=== PATIENT | male | born 1980 | race Asian ===

== ENCOUNTER 2023-11-18 18:14 | Inpatient (IN) | payer BC ==
[~2023-11-18] VITALS: Ht 167.6 cm; Wt 75.7 kg
[2023-11-18 18:53] LABS: BASOPHILS # (AUTO) 0.1 (0.0-0.1); BASOPHILS % 0.3 % (0.0-1.0); EOSINOPHILS # (AUTO) 0.1 (0.0-0.4); EOSINOPHILS % 0.5 % (0.0-6.0); HEMATOCRIT 43.6 % (38.2-49.6); HEMOGLOBIN 14.6 g/dL (14.0-18.0); LYMPHOCYTES # (AUTO) 1.6 (1.0-3.2); LYMPHOCYTES % 8.2 % (18.0-39.1); MEAN CORPUSCULAR HEMOGLOBIN 30.7 pg (28-32); MEAN CORPUSCULAR HGB CONC 33.5 g/dL (31-35); MEAN CORPUSCULAR VOLUME 91.8 fL (81-99); MONOCYTES # (AUTO) 2.6 (0.2-0.8); MONOCYTES % 12.9 % (4.4-11.3); NEUTROPHILS # (AUTO) 15.4 (2.1-6.9); NEUTROPHILS % 77.3 % (38.7-80.0); PLATELET COUNT 265 x10e3/uL (140-360); RED BLOOD COUNT 4.75 x10e6/uL (4.3-5.7); WHITE BLOOD COUNT 19.83 x10e3/uL (4.8-10.8)
[2023-11-18] MEDS: SODIUM CHLORIDE 0.9% 1000ML 1,000 ML IV STA (18:59)
[2023-11-18] MEDS: ONDANSETRON HCL INJ 2MG/ML 2ML 2 MG/ML VIAL IV STA (18:59)
[2023-11-18] MEDS: Morphine 4mg INJECTION 4 MG/ML INJ IV STA (19:00)
[2023-11-18] MEDS: ACETAMINOPHEN 325 MG TAB PO STA (19:00)
[2023-11-18 19:11] LABS: ALBUMIN 4.2 g/dL (3.5-5.0); ANION GAP 15.2 mmol/L (8-16); BILIRUBIN,TOTAL 0.6 mg/dL (0.2-1.2); CALCIUM 8.7 mg/dL (8.4-10.2); CREATININE, SERUM 1.19 mg/dL (0.72-1.25); POTASSIUM 4.2 mmol/L (3.5-5.1); TOTAL PROTEIN 8.3 g/dL (6.5-8.1)
[2023-11-18] MEDS ORDERED: IOPAMIDOL 370 MG/ML 100 ML INFUS..BTL INJ ONE (19:32)
[2023-11-18] MEDS ORDERED: Morphine 4mg INJECTION 4 MG/ML INJ IV PRN ×2 (20:30→23:00)
[2023-11-18 21:04] VITALS: PULSE 64; RESP 16; TEMP 98.8
[2023-11-18] MEDS: METRONIDAZOLE 500MG/NS 100ML 100 ML IV SCH (21:52)
[2023-11-18 22:20] VITALS: BP 111/66; PULSE 58; RESP 16; TEMP 98.7; O2SAT 99
[2023-11-18] MEDS ORDERED: ONDANSETRON HCL INJ 2MG/ML 2ML 2 MG/ML VIAL IV PRN (23:00)
[2023-11-18 23:03] VITALS: BP 111/66; PULSE 58; RESP 16; TEMP 98.7; O2SAT 99
[2023-11-18] MEDS: SODIUM CHLORIDE 0.9% 100 ML ONE (23:25)
[2023-11-18 23:29] VITALS: BP 111/66; PULSE 58; RESP 16; TEMP 98.7; O2SAT 99
[2023-11-19] VITALS (7 sets, daily range): BP systolic 95–107; BP diastolic 62–78; PULSE 56–79; RESP 16–18; TEMP 97.7–99.9; O2SAT 97–99
[2023-11-19 05:38] LABS: BASOPHILS # (AUTO) 0.1 (0.0-0.1); BASOPHILS % 0.3 % (0.0-1.0); EOSINOPHILS # (AUTO) 0.1 (0.0-0.4); EOSINOPHILS % 0.7 % (0.0-6.0); HEMATOCRIT 40.5 % (38.2-49.6); HEMOGLOBIN 13.2 g/dL (14.0-18.0); LYMPHOCYTES # (AUTO) 1.5 (1.0-3.2); LYMPHOCYTES % 8.3 % (18.0-39.1); MEAN CORPUSCULAR HEMOGLOBIN 30.4 pg (28-32); MEAN CORPUSCULAR HGB CONC 32.6 g/dL (31-35); MEAN CORPUSCULAR VOLUME 93.3 fL (81-99); MONOCYTES # (AUTO) 2.3 (0.2-0.8); MONOCYTES % 13.2 % (4.4-11.3); NEUTROPHILS # (AUTO) 13.5 (2.1-6.9); NEUTROPHILS % 76.8 % (38.7-80.0); PLATELET COUNT 238 x10e3/uL (140-360); RED BLOOD COUNT 4.34 x10e6/uL (4.3-5.7); RED CELL DISTRIBUTION WIDTH 12.9 % (11.7-14.4); WHITE BLOOD COUNT 17.62 x10e3/uL (4.8-10.8)
[2023-11-19 06:04] LABS: ALBUMIN 3.5 g/dL (3.5-5.0); ANION GAP 13.1 mmol/L (8-16); BILIRUBIN,TOTAL 0.4 mg/dL (0.2-1.2); CALCIUM 8.5 mg/dL (8.4-10.2); CREATININE, SERUM 1.12 mg/dL (0.72-1.25); POTASSIUM 4.1 mmol/L (3.5-5.1); TOTAL PROTEIN 7.1 g/dL (6.5-8.1)
[2023-11-19] MEDS ORDERED: ACETAMINOPHEN 325 MG TAB PO PRN (08:45)
[2023-11-19] MEDS ORDERED: ALBUTEROL/IPRATROPIUM 3 ML NEB NEB PRN (08:45)
[2023-11-19] MEDS ORDERED: SIMETHICONE 80 MG CHEW PO PRN (08:45)
[2023-11-19] MEDS ORDERED: MELATONIN 3 MG TAB PO PRN (08:45)
[2023-11-19] MEDS ORDERED: DOCUSATE SODIUM 100 MG CAP PO PRN (08:45)
[2023-11-19] MEDS: SODIUM CHLORIDE 0.9% 1000ML 1,000 ML IV SCH (09:39)
[2023-11-19] MEDS ORDERED: MIDAZOLAM HCL 2 MG/2 ML VIAL ONE (13:22)
[2023-11-19] MEDS ORDERED: FENTANYL CITRATE/PF 100MCG/2 ML INJ ONE (13:22)
[2023-11-19] MEDS ORDERED: LIDOCAINE HCL 1% LOCAL INJ 20 ML VIAL ONE (14:07)
[2023-11-19] MEDS ORDERED: BUPIVACAINE 0.5%/EPI 30 ML SDV INJ ONE (14:07)
[2023-11-19] MEDS ORDERED: HYDROMORPHONE 1MG/1ML INJ IV PRN (15:15)
[2023-11-19] MEDS ORDERED: ONDANSETRON HCL INJ 2MG/ML 2ML 2 MG/ML VIAL IV PRN (15:15)
[2023-11-19] MEDS ORDERED: SEVOFLURANE INHAL SOLN 250 ML PEN BTL ONE (17:17)
[2023-11-19] MEDS ORDERED: ONDANSETRON HCL INJ 2MG/ML 2ML 2 MG/ML VIAL ONE (17:17)
[2023-11-19] MEDS ORDERED: ESMOLOL HCL 100MG/10ML 10 MG/ML VIAL ONE (17:17)
[2023-11-19] MEDS ORDERED: DEXAMETHASONE SOD PHOS INJ 4 MG/ML SDV ONE (17:17)
[2023-11-19] MEDS ORDERED: PROPOFOL IV EMULSION 10 MG/ML 20 ML VIAL ONE (17:17)
[2023-11-19] MEDS ORDERED: LIDOCAINE HCL 2% LOCAL INJ 5 ML SDV VIAL INJ ONE (17:17)
[2023-11-19] MEDS: FAMOTIDINE 20 MG TAB PO SCH (17:32)
[2023-11-19] MEDS: KETOROLAC TROMETHAMINE 30 MG/ML VIAL IV PRN (17:39)
[2023-11-20] VITALS (12 sets, daily range): BP systolic 91–104; BP diastolic 52–78; PULSE 50–82; RESP 18–20; TEMP 97–98.2; O2SAT 98–100
[2023-11-20 05:35] LABS: BASOPHILS % 0.2 % (0.0-1.0); EOSINOPHILS % 0.2 % (0.0-6.0); HEMATOCRIT 38.5 % (38.2-49.6); HEMOGLOBIN 12.6 g/dL (14.0-18.0); LYMPHOCYTES # (AUTO) 1.5 (1.0-3.2); LYMPHOCYTES % 11.2 % (18.0-39.1); MEAN CORPUSCULAR HEMOGLOBIN 30.6 pg (28-32); MEAN CORPUSCULAR HGB CONC 32.7 g/dL (31-35); MEAN CORPUSCULAR VOLUME 93.4 fL (81-99); MONOCYTES # (AUTO) 1.3 (0.2-0.8); MONOCYTES % 9.3 % (4.4-11.3); NEUTROPHILS # (AUTO) 10.6 (2.1-6.9); NEUTROPHILS % 78.2 % (38.7-80.0); PLATELET COUNT 248 x10e3/uL (140-360); RED BLOOD COUNT 4.12 x10e6/uL (4.3-5.7); WHITE BLOOD COUNT 13.52 x10e3/uL (4.8-10.8)
[2023-11-20 06:06] LABS: ANION GAP 8.6 mmol/L (8-16); CALCIUM 8.8 mg/dL (8.4-10.2); CREATININE, SERUM 0.97 mg/dL (0.72-1.25); POTASSIUM 4.6 mmol/L (3.5-5.1)
[2023-11-20] MEDS: HYDROCODONE/APAP 7.5MG-325MG 1 EA TAB PO PRN (08:08)
[2023-11-20] MEDS: SODIUM CHLORIDE 0.9% 1000ML 1,000 ML IV SCH (08:08)
[2023-11-20] MEDS: SODIUM CHLORIDE 0.9% 1000ML 500 ML IV ONE (12:12)
[2023-11-21] VITALS (9 sets, daily range): BP systolic 91–113; BP diastolic 59–81; PULSE 48–65; RESP 7–18; TEMP 97.6–98.3; O2SAT 94–100
[2023-11-21 05:44] LABS: BASOPHILS # (AUTO) 0.1 (0.0-0.1); BASOPHILS % 0.6 % (0.0-1.0); EOSINOPHILS # (AUTO) 0.3 (0.0-0.4); EOSINOPHILS % 2.6 % (0.0-6.0); HEMATOCRIT 37.4 % (38.2-49.6); HEMOGLOBIN 12.4 g/dL (14.0-18.0); LYMPHOCYTES # (AUTO) 1.8 (1.0-3.2); MEAN CORPUSCULAR HGB CONC 33.2 g/dL (31-35); MEAN CORPUSCULAR VOLUME 93.5 fL (81-99); MONOCYTES # (AUTO) 1.2 (0.2-0.8); MONOCYTES % 11.8 % (4.4-11.3); NEUTROPHILS % 67.2 % (38.7-80.0); PLATELET COUNT 260 x10e3/uL (140-360); RED CELL DISTRIBUTION WIDTH 12.9 % (11.7-14.4); WHITE BLOOD COUNT 10.46 x10e3/uL (4.8-10.8)
[2023-11-21 06:45] LABS: ANION GAP 8.9 mmol/L (8-16); CALCIUM 7.8 mg/dL (8.4-10.2); CREATININE, SERUM 0.85 mg/dL (0.72-1.25); POTASSIUM 3.9 mmol/L (3.5-5.1)
[2023-11-21] MEDS ORDERED: IOPAMIDOL 610MG/1ML 300 MG/ML VIAL IV ONE (09:29)
[2023-11-21] MEDS ORDERED: ONDANSETRON HCL 4 MG ORAL DISINTEGRATING TAB PO PRN (10:15)
[2023-11-21] MEDS ORDERED: DEXMEDETOMIDINE HCL 200 MCG/2 ML VIAL ONE (11:06)
[2023-11-21] MEDS ORDERED: LIDOCAINE HCL 2% LOCAL INJ 5 ML SDV VIAL INJ ONE (11:06)
[2023-11-21] MEDS ORDERED: ACETAMINOPHEN 1000 MG/100 ML IV ONE (11:06)
[2023-11-21] MEDS ORDERED: PROPOFOL IV EMULSION 10 MG/ML 20 ML VIAL ONE (11:06)
[2023-11-21] MEDS ORDERED: SODIUM CHLORIDE 0.9% INJ 100 ML BAG ONE (11:06)
[2023-11-21] MEDS ORDERED: FENTANYL CITRATE/PF 100MCG/2 ML INJ ONE (11:29)
[2023-11-21] MEDS ORDERED: MIDAZOLAM HCL 2 MG/2 ML VIAL ONE (11:29)
[2023-11-22] VITALS (8 sets, daily range): BP systolic 96–148; BP diastolic 53–88; PULSE 50–69; RESP 16–19; TEMP 97.8–98.7; O2SAT 96–100
[2023-11-23] VITALS: BP 106/67; PULSE 53; RESP 17; TEMP 98.2; O2SAT 98
[2023-11-23 04:00] VITALS: BP 103/68; PULSE 53; RESP 20; TEMP 98; O2SAT 97
[2023-11-23 07:29] VITALS: PULSE 71; RESP 17; O2SAT 95
[2023-11-23 07:58] VITALS: BP 115/65; PULSE 49; RESP 19; TEMP 98.2; O2SAT 98
[2023-11-23 08:03] VITALS: BP 115/65; PULSE 49; RESP 19; TEMP 98.2; O2SAT 98
[2023-11-23] MEDS: DOCUSATE SODIUM 100 MG CAP PO SCH (08:35)
[2023-11-23] MEDS: SENNOSIDES 8.6 MG TAB PO SCH (08:36)
[2023-11-23 11:55] VITALS: BP 103/65; PULSE 62; RESP 19; TEMP 98.2; O2SAT 98
[2023-11-23] MEDS ORDERED: Docusate Sodium PO (12:02)
[2023-11-23] MEDS ORDERED: ACETAMINOPHEN325 M1 PO (12:02)
[2023-11-23] MEDS ORDERED: ULTRAM 50MG50 MG PO (12:02)
[2023-11-23] MEDS ORDERED: SENOKOT8.6 MG PO (12:02)
[2023-11-23] MEDS ORDERED: FAMOTIDINE20 MG PO (12:02)
[2023-11-23] MEDS ORDERED: METRONIDAZOLE500 MG PO (12:02)
[2023-11-23] MEDS ORDERED: CIPRO500 MG PO (12:02)
[2023-11-23] MEDS ORDERED: METRONIDAZOLE 500 MG TAB PO SCH (18:00)
== END 2023-11-23 15:11 | disposition home or self-care (01) | DRG 854 ==
LOC: ER 18:41 → ERHOLD 20:23 → MED/SURG3 22:13
PROVIDERS: ADMIT Internal Medicine; ATTEND Internal Medicine
PROC: 3E03329 Introduction of Other Anti-infective into Peripheral Vein, Percutaneous Approach (ICD-10-PCS; 2023-11-18)
PROC: 0HB9XZZ Excision of Perineum Skin, External Approach (ICD-10-PCS; principal; 2023-11-19 14:17)
PROC: 0T778DZ Dilation of Left Ureter with Intraluminal Device, Via Natural or Artificial Opening Endoscopic (ICD-10-PCS; 2023-11-21)
PROC: 0TC78ZZ Extirpation of Matter from Left Ureter, Via Natural or Artificial Opening Endoscopic (ICD-10-PCS; 2023-11-21)
PROC: 0T578ZZ Destruction of Left Ureter, Via Natural or Artificial Opening Endoscopic (ICD-10-PCS; 2023-11-21)
PROC: BT141ZZ Fluoroscopy of Kidneys, Ureters and Bladder using Low Osmolar Contrast (ICD-10-PCS; 2023-11-21)
DX: A41.9 Sepsis, unspecified organism (principal); K61.2 Anorectal abscess; N13.2 Hydronephrosis with renal and ureteral calculous obstruction; K76.0 Fatty (change of) liver, not elsewhere classified; N28.89 Other specified disorders of kidney and ureter; R33.9 Retention of urine, unspecified; D64.9 Anemia, unspecified; Q54.9 Hypospadias, unspecified; Z71.3 Dietary counseling and surveillance; Z68.27 Body mass index [BMI] 27.0-27.9, adult; Z11.52 Encounter for screening for COVID-19; Z79.899 Other long term (current) drug therapy
CPT/HCPCS: 0223U; 36415; 51700; 74177; 74420; 80048; 80053; 83605; 83690; 85025; 87040; 88300; 94799; 99284; C1758; C1769; C2617; J1100; J1885; J2001; J2250; J2270; J2405; J2543; J7030; J7050; Q9967